=== PATIENT | male | born 1960 | race Caucasian/White ===

== ENCOUNTER → 2020-02-03 09:43 | Outpatient (BNVA) | payer BC, SELFPAY | PROVIDERS: PCP Internal Medicine; Referring Provider Internal Medicine; Visit Provider Hospitalist | DX: J45.909 Unspecified asthma, uncomplicated (principal); G47.33 Obstructive sleep apnea (adult) (pediatric); Z23 Encounter for immunization | CPT/HCPCS: 90686 ==

== ENCOUNTER 2021-09-11 09:06 | Outpatient (REF) | payer BC, SELFPAY ==
--- NOTE | ~2021-09-11 | XR_ITS ---
EXAMINATION: XR CHEST CLINICAL INFORMATION: COVID 19. COMPARISON: None TECHNIQUE: 2 views of the chest were obtained. FINDINGS: No significant abnormality is noted involving the heart, lungs, mediastinum, bony thorax or soft tissues. XR/XR chest 2V IMPRESSION: No acute cardiopulmonary process.
== END 2021-09-11 09:07 | disposition home or self-care (01) ==
LOC: HO.XRAY 09:06
PROVIDERS: PCP Internal Medicine; Visit Provider Hospitalist
DX: U07.1 COVID-19 (principal)
CPT/HCPCS: 71046

== ENCOUNTER → 2022-08-22 14:20 | Outpatient (BNVA) | payer BC, SELFPAY | PROVIDERS: PCP Internal Medicine; Visit Provider Hospitalist | DX: J45.909 Unspecified asthma, uncomplicated (principal) ==

== ENCOUNTER → 2022-09-25 09:34 | Outpatient (REF) | payer BC, SELFPAY | LOC: HO.SL 09:34 | PROVIDERS: PCP Internal Medicine; Visit Provider Hospitalist | DX: G47.33 Obstructive sleep apnea (adult) (pediatric) (principal) | CPT/HCPCS: 95806 ==

== ENCOUNTER 2023-08-01 09:32 | Outpatient (AMB) | payer BC, SELFPAY ==
[2023-08-01 09:43] VITALS: PULSE 72; O2SAT 97; BMI 34.3
--- NOTE | 2023-08-01 09:43 | MHC.OFFVIS ---
Vital Signs 08/01/23 09:43 Height 6 ft 1 in Weight 260 lb BMI 34.3 Pulse 72 Pulse Source Pulse Oximeter Pulse Oximetry (%) 97 Oxygen Delivery Method Room Air Intake Visit Reasons: productive cough Seaming Inspector Required: No Allergies Iodine Allergy (Severe, Uncoded 08/01/23 09:44) Hives IVP Dye Allergy (Severe, Uncoded 08/01/23 09:44) Hives Seafood Allergy (Severe, Uncoded 08/01/23 09:44) Hives HPI Comments Details: The patient is a 62-year-old gentleman known obstructive sleep apnea on chronic rhinitis. Overall he has been doing good on the CPAP. The CPAP therapy has been affecting beneficial. He does use it for more than 4 hours. The only issue is that he has been having significant dry mouth. He does use a fullface mask. It is likely he is opening his mouth. He understands that to dry gingiva can actually be detrimental to his dental health. Therefore, he would have to switch over to a fullface mask or continue using the nasal mask with a chinstrap. He is open to trying the fullface mask at this time since his nasal congestion is also pretty significant. He is using the nasal rinse. Also provided with additional nasal steroid sprays to try to improve the inflammation. 08/22/2022 the patient is here for a pulmonary follow-up visit. He is not using CPAP. It was bothering his mouth and could not tolerate the therapy well. Therefore he stopped it. He has been sleeping without it. Seems to be doing better although he still has episodes of snoring and apnea per his . The patient does have significant sleep apnea based on previous studies. He has had significant weight loss and he is hopeful that his degree of sleep apnea has improved. He also has a positional bed which will try to use more in order to improve his obstructive airway. Therefore, will request a repeat study to see the patient still required CPAP. If he does require CPAP then we have to find a way for him to be able to tolerated effectively in order to decrease his cardiovascular risk factors. He has nasal congestion is still present. He has been trying the nasal sprays with only partial improvement of the symptoms. 08/01/2023 the patient is here for a pulmonary follow-up visit. He has been having multiple complaints. In part he has been having worsening cough nasal congestion difficulty use CPAP. The patient has been waking up with a very dry mouth and also with coughing episodes. He is tried fluticasone nasal spray and also the nasal rinse but it really has not helped him. He has not taking any allergy medicine at this time. He does have significant nasal passages congestion and also postnasal drip. His lungs sound okay. In addition to this the patient did follow-up with his new primary care doctor. He has a history of a bicuspid aortic valve in addition to any order aneurysms. Therefore she did undergo a CTA demonstrating and the ascending aorta measuring 4.9 cm in size. The patient will be following up with his primary care doctor but in the meantime I will go ahead and put a referral in to Cardiology although he may need to see Cardiothoracic surgery soon. He is also having issues with his left knee to a traumatic injury when he was child. At this point we need to address all his cardiac issues before considering any orthopedic intervention. From a pulmonary standpoint the patient is doing okay. Will go ahead and treating for the upper airway cough syndrome and hopefully can to tolerate the CPAP again. [facility] Medical History (Updated 08/03/23 @ 22:16 by Davis Friedman MD) Aortic aneurysm COVID-19 Asthma Chronic allergic rhinitis SHAUNA (obstructive sleep apnea) Family History (Updated 02/03/20 @ 21:45 by Davis Friedman MD) Other SHAUNA (obstructive sleep apnea) Social History (Updated 08/31/21 @ 14:59 by Opal Mckeon Rene) Patient Tobacco Use Status: Never used Tobacco Review of Systems Const Denies night sweats and Reports snoring ENT Denies change in voice, Reports dry mouth, Denies lip swelling, Denies mouth pain, Reports nasal congestion, Reports nasal discharge and Denies tongue swelling Card Denies chest pain and Reports dyspnea on exertion Resp Denies chest congestion, Reports cough, Denies hemoptysis, Reports dyspnea on exertion and Reports snoring GI Denies abdominal pain Musc Denies no additional complaints Neuro Denies Neuro-related abnormal movements Psych Denies no additional complaints Prateek/Lymph Denies easy bleeding and Denies lymphadenopathy Aller/Immun Denies lip swelling and Denies tongue swelling Physical Exam Vital Signs: Last Vital Signs Pulse 72 08/01/23 09:43 Pulse Ox 97 08/01/23 09:43 Oxygen Delivery Method Room Air 08/01/23 09:43 BMI result Body Mass Index 34.3 Const General: alert HEENT General nose exam: Abnormal external nose present and Nasal discharge present Eyes Pupils: Equal, round and reactive pupils present Neck Neck: Yes normal visual inspection, Yes full ROM and Yes no lymphadenopathy Chest Chest palpation & inspection: normal inspection of the chest Resp Effort & Inspection: normal respiratory effort Auscultation: diminished lung sounds Cardio Rate: regular rate Rhythm: regular rhythm Heart sounds: S1 normal heart sound present and S2 normal heart sound present GI Palpation (GI): Soft to palpation and nontender Auscultation: normal bowel sounds General: Yes no CVA tenderness Back/Spine/Pelvis Back: no CVA tenderness Skin General skin exam: rashes and/or lesions noted Neuro Cranial nerves: Yes Equal, round and reactive pupils present Assessment & Plan Assessment & Plan (1) SHAUNA (obstructive sleep apnea): Code(s): G47.33 - Obstructive sleep apnea (adult) (pediatric) Category: Medical Plan: Failed APAP, Needs BIPAP. Will request through his [employer], [employer] (2) Chronic allergic rhinitis: Code(s): J30.9 - Allergic rhinitis, unspecified Category: Medical Plan: Add singulair Add Aztelin (3) Asthma: Code(s): J45.909 - Unspecified asthma, uncomplicated Category: Medical Qualifiers: Asthma severity: moderate Asthma persistence: persistent Asthma complication type: uncomplicated Qualified Code(s): J45.40 - Moderate persistent asthma, uncomplicated (4) Aortic aneurysm: Code(s): I71.9 - Aortic aneurysm of unspecified site, without rupture Category: Medical Qualifiers: Aortic location: thoracic aorta Thoracic aorta location: ascending aorta Presence of rupture: without rupture Qualified Code(s): I71.21 - Aneurysm of the ascending aorta, without rupture (5) Sinusitis: Code(s): J32.9 - Chronic sinusitis, unspecified Category: Medical Qualifiers: Sinusitis location: unspecified location Chronicity: subacute Qualified Code(s): J01.90 - Acute sinusitis, unspecified Plan continue nasal sprays nasal rinsing medrol pk doxycycline astelin nasal spray Cardiology referal F/U 8-12 months or sooner if no better Orders: Referrals Cardiology Referral I71.9 - Aortic aneurysm of unspecified site, without rupture Medications: New methylprednisolone (Medrol (Jameson)) PO PER PKG DIR 21 ea 0RF 6 days cetirizine (Zyrtec) 10 mg PO DAILY 30 tabs 8RF 30 days doxycycline hyclate 100 mg PO BID 20 caps 0RF 10 days Coding Level of Care Code Est Pt Level 4 (36928) Diagnoses SHAUNA (obstructive sleep apnea) G47.33 Chronic allergic rhinitis J30.9 Moderate persistent asthma without complication J45.40 Asthma severity: moderate Asthma persistence: persistent Asthma complication type: uncomplicated Aneurysm of ascending aorta without rupture I71.21 Aortic location: thoracic aorta Thoracic aorta location: ascending aorta Presence of rupture: without rupture Subacute sinusitis, unspecified location J01.90 Sinusitis location: unspecified location Chronicity: subacute Time Spent (min) 18
== END 2023-08-01 10:15 | disposition home or self-care (01) ==
PROVIDERS: PCP Internal Medicine; Visit Provider Hospitalist
DX: G47.33 Obstructive sleep apnea (adult) (pediatric) (principal); J30.9 Allergic rhinitis, unspecified; J45.40 Moderate persistent asthma, uncomplicated; I71.21 Aneurysm of the ascending aorta, without rupture; J01.90 Acute sinusitis, unspecified
CPT/HCPCS: 99214

== ENCOUNTER → 2023-08-01 09:32 | Outpatient (BNVA) | payer BC, SELFPAY | PROVIDERS: PCP Internal Medicine; Visit Provider Hospitalist ==

== ENCOUNTER 2024-02-03 09:32 | Outpatient (AMB) | payer MEDICARE, BC, SELFPAY ==
[2024-02-03 09:36] VITALS: BP 142/70; PULSE 79; O2SAT 97; BMI 35.2
--- NOTE | 2024-02-03 09:36 | MHC.OFFVIS ---
Vital Signs 02/03/24 09:36 Height 6 ft 1 in Weight 266 lb 12.149 oz BMI 35.2 BP 142/70 H Blood Pressure Location Lt brachial Position Sitting Pulse 79 Pulse Source Pulse Oximeter Pulse Oximetry (%) 97 Oxygen Delivery Method Room Air Intake Visit Reasons: Cough Oven Drier Tender Required: No Oxide Furnace Tender: Oxide Furnace Tender offered & declined Accompanied by: Self / Same As Patient Allergies Iodine Allergy (Severe, Uncoded 02/03/24 09:42) Hives IVP Dye Allergy (Severe, Uncoded 02/03/24 09:42) Hives Seafood Allergy (Severe, Uncoded 02/03/24 09:42) Hives Medication List - Last Reconciled 02/03/24 by Chloe Roche LPN acetaminophen ER (Tylenol Arthritis Pain) 650 mg PO Q12H allopurinol 300 mg PO DAILY amlodipine 5 mg PO DAILY atorvastatin 10 mg PO DAILY azelastine 2 sprays intranasal BID cetirizine (Zyrtec) 10 mg PO DAILY 30 days cholecalciferol (vitamin D3) 25 mcg PO DAILY fluticasone propionate 50 mcg/actuation (Flonase Allergy Relief) 2 sprays intranasal DAILY 90 days ibuprofen 800 mg PO BID multivitamin 1 tab PO DAILY HPI Comments Details: The patient is a 63-year-old gentleman known obstructive sleep apnea on chronic rhinitis. Overall he has been doing good on the CPAP. The CPAP therapy has been affecting beneficial. He does use it for more than 4 hours. The only issue is that he has been having significant dry mouth. He does use a fullface mask. It is likely he is opening his mouth. He understands that to dry gingiva can actually be detrimental to his dental health. Therefore, he would have to switch over to a fullface mask or continue using the nasal mask with a chinstrap. He is open to trying the fullface mask at this time since his nasal congestion is also pretty significant. He is using the nasal rinse. Also provided with additional nasal steroid sprays to try to improve the inflammation. 08/22/2022 the patient is here for a pulmonary follow-up visit. He is not using CPAP. It was bothering his mouth and could not tolerate the therapy well. Therefore he stopped it. He has been sleeping without it. Seems to be doing better although he still has episodes of snoring and apnea per his . The patient does have significant sleep apnea based on previous studies. He has had significant weight loss and he is hopeful that his degree of sleep apnea has improved. He also has a positional bed which will try to use more in order to improve his obstructive airway. Therefore, will request a repeat study to see the patient still required CPAP. If he does require CPAP then we have to find a way for him to be able to tolerated effectively in order to decrease his cardiovascular risk factors. He has nasal congestion is still present. He has been trying the nasal sprays with only partial improvement of the symptoms. 08/01/2023 the patient is here for a pulmonary follow-up visit. He has been having multiple complaints. In part he has been having worsening cough nasal congestion difficulty use CPAP. The patient has been waking up with a very dry mouth and also with coughing episodes. He is tried fluticasone nasal spray and also the nasal rinse but it really has not helped him. He has not taking any allergy medicine at this time. He does have significant nasal passages congestion and also postnasal drip. His lungs sound okay. In addition to this the patient did follow-up with his new primary care doctor. He has a history of a bicuspid aortic valve in addition to any order aneurysms. Therefore she did undergo a CTA demonstrating and the ascending aorta measuring 4.9 cm in size. The patient will be following up with his primary care doctor but in the meantime I will go ahead and put a referral in to Cardiology although he may need to see Cardiothoracic surgery soon. He is also having issues with his left knee to a traumatic injury when he was child. At this point we need to address all his cardiac issues before considering any orthopedic intervention. From a pulmonary standpoint the patient is doing okay. Will go ahead and treating for the upper airway cough syndrome and hopefully can to tolerate the CPAP again. 02/03/2024 the patient is here for a pulmonary follow-up visit. He has been having worsening dyspnea on exertion. Even with minimal activity. He has been being followed closely for the cardiac issues including the valvular disease in the aortic aneurysm. He does not use any inhalers at this time. We did go for a walking oximetry the patient did desaturate down to 92%. As part of the workup he did have a CT scan of the chest at [facility] which I personally reviewed. Lung parenchyma looks completely normal. Does have the issue with the aneurysmal dilation of the aorta which measuring 4.9 cm similar to previous and also significant calcifications of the coronary arteries. He needs to see Cardiology likely needs a stress test sooner rather than later. For now he is going to call to see if he can be added to the cancellation list and get an earlier appointment otherwise follow-up with cardiology next month. I am going to hold off on inhaler therapies set up believe that will help him. Although I do believe that he is volume overloaded and will given 3 days of Lasix in order for him to diurese. We did talk about the importance of low-sodium diet. The patient is the meal prepared in the family. Typically he has premade frozen meals. We did talk about making sure he [employer] low-sodium meals. Also minimizing another salt loaded foods such as chips. He is going to work on that for now hopefully that will improve his respiratory capacity and as his volume status improves. Also going to request an overnight oximetry to assess his oxygen needs at nighttime. Patient will follow-up in 3 months. [facility] Medical History (Updated 02/03/24 @ 20:07 by Davis Friedman MD) Aortic aneurysm COVID-19 Asthma Chronic allergic rhinitis SHAUNA (obstructive sleep apnea) Family History (Updated 02/03/20 @ 21:45 by Davis Friedman MD) Other SHAUNA (obstructive sleep apnea) Social History (Updated 02/03/24 @ 09:43 by Chloe Roche LPN) Patient Tobacco Use Status: Never used Tobacco Review of Systems Const Denies night sweats and Reports snoring ENT Denies change in voice, Reports dry mouth, Denies lip swelling, Denies mouth pain, Reports nasal congestion, Reports nasal discharge and Denies tongue swelling Card Denies chest pain and Reports dyspnea on exertion Resp Denies chest congestion, Reports cough, Denies hemoptysis, Reports dyspnea on exertion and Reports snoring GI Denies abdominal pain Musc Denies no additional complaints Neuro Denies Neuro-related abnormal movements Psych Denies no additional complaints Prateek/Lymph Denies easy bleeding and Denies lymphadenopathy Aller/Immun Denies lip swelling and Denies tongue swelling Physical Exam Vital Signs: Last Vital Signs Pulse 79 02/03/24 09:36 BP 142/70 H 02/03/24 09:36 Pulse Ox 97 02/03/24 09:36 Oxygen Delivery Method Room Air 02/03/24 09:36 BMI result Body Mass Index 35.2 Const General: alert HEENT General nose exam: Abnormal external nose present and Nasal discharge present Eyes Pupils: Equal, round and reactive pupils present Neck Neck: Yes normal visual inspection, Yes full ROM and Yes no lymphadenopathy Chest Chest palpation & inspection: normal inspection of the chest Resp Effort & Inspection: normal respiratory effort Auscultation: diminished lung sounds Cardio Rate: regular rate Rhythm: regular rhythm Heart sounds: S1 normal heart sound present, S2 normal heart sound present and Murmur heart sound present GI Palpation (GI): Soft to palpation and nontender Auscultation: normal bowel sounds General: Yes no CVA tenderness Back/Spine/Pelvis Back: no CVA tenderness Skin General skin exam: rashes and/or lesions noted Neuro Cranial nerves: Yes Equal, round and reactive pupils present Assessment & Plan Assessment & Plan (1) SHAUNA (obstructive sleep apnea): Code(s): G47.33 - Obstructive sleep apnea (adult) (pediatric) Category: Medical Plan: Failed APAP, Needs BIPAP. Will request through his [employer], [employer] (2) Chronic allergic rhinitis: Code(s): J30.9 - Allergic rhinitis, unspecified Category: Medical Plan: Add singulair Add Aztelin (3) Asthma: Code(s): J45.909 - Unspecified asthma, uncomplicated Category: Medical Qualifiers: Asthma complication type: uncomplicated Asthma persistence: persistent Asthma severity: moderate Qualified Code(s): J45.40 - Moderate persistent asthma, uncomplicated (4) Aortic aneurysm: Code(s): I71.9 - Aortic aneurysm of unspecified site, without rupture Category: Medical Qualifiers: Aortic location: thoracic aorta Presence of rupture: without rupture Thoracic aorta location: ascending aorta Qualified Code(s): I71.21 - Aneurysm of the ascending aorta, without rupture (5) CHF (congestive heart failure): Code(s): I50.9 - Heart failure, unspecified Category: Medical Qualifiers: Heart failure type: other Qualified Code(s): I50.9 - Heart failure, unspecified Plan lasix x 3 days low sodium diet continue nasal sprays nasal rinsing astelin nasal spray Cardiology referal overnight oximetry on RA F/U 4-6 months or sooner if no better Orders: Orders Overnight Pulse Oximetry Today I50.9 - Heart failure, unspecified Medications: New furosemide (Lasix) 20 mg PO DAILY 7 tabs 0RF 7 days Coding Level of Care Code Est Pt Level 4 (11576) Diagnoses SHAUNA (obstructive sleep apnea) G47.33 Chronic allergic rhinitis J30.9 Moderate persistent asthma without complication J45.40 Asthma complication type: uncomplicated Asthma persistence: persistent Asthma severity: moderate Aneurysm of ascending aorta without rupture I71.21 Aortic location: thoracic aorta Presence of rupture: without rupture Thoracic aorta location: ascending aorta Other congestive heart failure I50.9 Heart failure type: other Time Spent (min) 16
== END 2024-02-03 10:13 | disposition home or self-care (01) ==
PROVIDERS: PCP Internal Medicine; Visit Provider Hospitalist
DX: G47.33 Obstructive sleep apnea (adult) (pediatric) (principal); J30.9 Allergic rhinitis, unspecified; J45.40 Moderate persistent asthma, uncomplicated; I71.21 Aneurysm of the ascending aorta, without rupture; I50.9 Heart failure, unspecified
CPT/HCPCS: 99214

== ENCOUNTER → 2024-02-03 09:32 | Outpatient (BNVA) | payer MEDICARE, BC, SELFPAY | PROVIDERS: PCP Internal Medicine; Visit Provider Hospitalist | DX: J45.40 Moderate persistent asthma, uncomplicated (principal); J30.9 Allergic rhinitis, unspecified; G47.33 Obstructive sleep apnea (adult) (pediatric); I71.21 Aneurysm of the ascending aorta, without rupture; I50.9 Heart failure, unspecified; Z99.89 Dependence on other enabling machines and devices | CPT/HCPCS: 99212 ==

== ENCOUNTER 2024-05-31 15:07 | Outpatient (AMB) | payer MEDICARE, BC, SELFPAY ==
[2024-05-31 15:08] VITALS: BP 122/74; PULSE 78; O2SAT 97; BMI 36.2
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
== END 2024-05-31 15:37 | disposition home or self-care (01) ==
PROVIDERS: PCP Internal Medicine; Visit Provider Hospitalist
DX: G47.33 Obstructive sleep apnea (adult) (pediatric) (principal); J30.9 Allergic rhinitis, unspecified; J45.40 Moderate persistent asthma, uncomplicated; I71.21 Aneurysm of the ascending aorta, without rupture; I50.9 Heart failure, unspecified
CPT/HCPCS: 99214

== ENCOUNTER → 2024-05-31 15:07 | Outpatient (BNVA) | payer MEDICARE, BC, SELFPAY | PROVIDERS: PCP Internal Medicine; Visit Provider Hospitalist | DX: G47.33 Obstructive sleep apnea (adult) (pediatric) (principal); J45.40 Moderate persistent asthma, uncomplicated; J30.9 Allergic rhinitis, unspecified; I71.21 Aneurysm of the ascending aorta, without rupture; I05.9 Rheumatic mitral valve disease, unspecified; R06.00 Dyspnea, unspecified; Z99.89 Dependence on other enabling machines and devices | CPT/HCPCS: 99212 ==

== ENCOUNTER 2024-10-25 09:41 | Outpatient (AMB) | payer MEDICARE, BC, SELFPAY ==
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
[2024-10-25 09:53] VITALS: BP 143/71; PULSE 76; O2SAT 99; BMI 34.6
== END 2024-10-25 10:29 | disposition home or self-care (01) ==
PROVIDERS: PCP Internal Medicine; Referring Provider Physician Assistant Medical; Visit Provider Nurse Practitioner Family
DX: M47.812 Spondylosis without myelopathy or radiculopathy, cervical region (principal); M54.2 Cervicalgia; M54.50 Low back pain, unspecified; G89.29 Other chronic pain; M47.817 Spondylosis without myelopathy or radiculopathy, lumbosacral region; M25.562 Pain in left knee
CPT/HCPCS: 99204

== ENCOUNTER 2024-10-25 09:41 | Outpatient (REF) | payer MEDICARE, BC, SELFPAY ==
--- NOTE | ~2024-10-25 | XR_ITS ---
EXAMINATION: XR CERVICAL SPINE CLINICAL INFORMATION: M47.812 - Spondylosis without myelopathy or radiculopathy, cervical region COMPARISON: None available. TECHNIQUE: AP oblique and lateral views swimmer's projection. Atlantoaxial view. FINDINGS: Craniocervical junction is intact. Marginal osteophyte formation and/syndesmophyte formation C5-6 and C6-7 levels. Grade 1 retrolisthesis C3-4. Bilateral neuroforamina narrowing at C3-4 C5-6 levels mostly on the right side. XR/XR cervical spine 4V IMPRESSION: Multilevel cervical thoracic spondylosis pronounced at C5-6 and C6-7 with a grade 1 retrolisthesis C3-4 on a degenerative basis. Electronically signed by: Janes Deras MD 10/25/2024 11:25 AM EDT
--- NOTE | ~2024-10-25 | XR_ITS ---
EXAMINATION: X-ray lumbar spine CLINICAL INFORMATION: Low back pain. TECHNIQUE: AP oblique and lateral views.. COMPARISON: None FINDINGS: Multilevel marginal osteophyte formation and syndesmophyte formation throughout the lower thoracic and upper lumbar spine. Endplate sclerosis at multiple levels of the lower thoracic and lumbar spine. Small marginal osteophyte formation in the lower lumbar spine. Facet joint hypertrophy at L5-S1. No acute cortical disruption or gross malalignment. Vascular calcifications, aorta. Degenerative changes in the coxofemoral joints, pronounced on the right hip no fully included in the [id number]. Cluster of calcifications overlapping the lower pole left kidney the largest measures 5.9 mm XR/XR lumbar spine 4V min IMPRESSION: Multilevel thoracolumbar spondylosis without acute fracture or trauma-related listhesis. Probable nephrolithiasis, left kidney. Osteoarthrosis, both hips. Electronically signed by: Janes Deras MD 10/25/2024 11:24 AM EDT
== END 2024-10-25 09:42 | disposition home or self-care (01) ==
LOC: HO.XRAY 09:41
PROVIDERS: PCP Internal Medicine; Referring Provider Physician Assistant Medical; Visit Provider Nurse Practitioner Family
DX: M47.812 Spondylosis without myelopathy or radiculopathy, cervical region (principal); M54.2 Cervicalgia; M47.817 Spondylosis without myelopathy or radiculopathy, lumbosacral region; G89.21 Chronic pain due to trauma; M54.50 Low back pain, unspecified; M25.562 Pain in left knee; Z79.899 Other long term (current) drug therapy; I71.9 Aortic aneurysm of unspecified site, without rupture
CPT/HCPCS: 72050; 72110; 99202

== ENCOUNTER → 2024-10-25 10:44 | Outpatient (BNV) | payer MEDICARE, BC, SELFPAY | PROVIDERS: PCP Internal Medicine; Referring Provider Physician Assistant Medical; Visit Provider Radiology Diagnostic Radiology | DX: M47.812 Spondylosis without myelopathy or radiculopathy, cervical region (principal); M47.815 Spondylosis without myelopathy or radiculopathy, thoracolumbar region | CPT/HCPCS: 72050; 72110 ==

== ENCOUNTER 2025-03-11 14:29 | Outpatient (AMB) | payer MEDICARE, BC, SELFPAY ==
--- OUTSIDE RECORDS SUMMARY | 2024-11-05 05:30 | XMS_ITS | Continuity of Care Document ---
Author Organization [facility] Address [address] [place] [address] Dr [address] [place] [phone] Phone Care Team Providers Care Practical Nurse Name Role Phone Mirza JEAN, TESSIE, Yosvany MARTINEZ Unavailable U navailable Procedures Procedure Date Office/Oupt E&M New Pt 45 Mins- CT & [place] Advance Directives Directive Yes / No Effective Date File Name Other Directive No 11/05/2024 N/A WARNING:The information contained in this section is historical and is provided for information only and does not constitute a legal document or any assurance that the information is still accurate. Please verify the information with the gallegos of the legal document before using it for clinical purposes. Encounters Encounter Description Practice Location Reason(s) For Visit Diagnoses Date Provider Encounter Disposition Office/Oupt E&M New Pt 45 Mins- CT & [place] [facility], [address] [place] [address] Dr Gallegos [address]Suite Edgardo [place], [id number], [place] tel:[phone] R - [facility] Chronic venous hypertension (idiopathic) with other complications of bilateral lower extremityRest less legs syndromeEssen tial (primary) hypertensionL ymphedema, not elsewhere classifiedDis order of pigmentation, unspecifiedHe reditary lymphedemaCra mp and spasmLocalize d edema Mirza JEAN, MICHELLE KURTZ. [address] [facility], [address], [place], [place], [id number] , [place]. tel:[phone] [facility], [address] [place] [address] Dr Gallegos [address] Edgardo Collazo MD, [id number], tel:[phone] [facility] - [place] [facility] [place] Chronic venous hypertension (idiopathic) with other complications of bilateral lower extremity Mirza JEAN, RVT, MICHELLE Bar. [address] [facility], [address], [place], [place], [id number] , [place]. tel:[phone] Family History Family Member Type Diagnosis Age At Onset No Information Payers Payer name Insurance type Identifiers Authorization(s) Com ments Medicare EMMA CASSIDY er ID: [id number] Name: Coverage Status Eligibility Check on: [id number] nship to Subscriber: selfPayer Address: [address], [place], [place], [id number], [place] Phone: [phone] [facility] ID: [id number] Name: Coverage Status Eligibility Check on: [id number] nship to Subscriber: selfPayer Address: [address], [place], [address], [place]ayer Phone: [phone] Social History Type Description Quantity Date Captured Comments Alcohol Use Details Unknown Caffeine Use Details Unknown Tobacco Use Status Current non-smoker Smoking Status Never Smoker Non-Smoking Tobacco Use Details : No Details Available : No Details Available Sex Male Current Gender Male (finding) Vital Signs Date / Time: Height Weight BMI Pulse Rate Blood Pressure Temperature Respiratory Rate Body Surface Area Head Circumference Head Circ. Percentile Wt./Darren. Percentile BMI percentile Pulse Ox Inhaled Ox 119.290 kg (263.00 lbs) 34.7 1 kg/m eter (2) 134/76 mm[Hg] Chief Complaint And Reason For Visit No Information Plan Of Treatment Date Type Action Status Goal Diet education completed Referral Ordered: Weight management: Referral to physician timeframe: 3 Months (related to Body mass index (BMI) 34.0-34.9, adult) ordered History Of Present Illness Encounter Date Complaint History Of Prese nt Illness No Information Functional Status Date Description Comments No Information Instructions Date Instruction Additional Infor nilton Pre and post instruc tions reviewed and provided Related to Chronic venous hypertension (idiopathic) with other complications of bilateral lower extremity Patient education booklet given Related to Chronic venous hypertension (idiopathic) with other complications of bilateral lower extremity Diet education Related to Body mass index (BMI) 34.0-34.9, adult Lifestyle education Related to B freddie mass index (BMI) 34.0-34.9, adult Giving Encouragement to exercise Related to Body mass index (BMI) 34.0-34.9, adult Assessments Type Assessment Date No Information
[2025-03-11 14:40] VITALS: BP 116/72; PULSE 69; O2SAT 96
--- NOTE | 2025-03-11 14:40 | MHC.OFFVIS ---
Vital Signs 03/11/25 14:40 Height 6 ft 1 in BMI Reason not done Patient refused/unable BP 116/72 Blood Pressure Location Lt brachial Position Sitting Pulse 69 Pulse Source Pulse Oximeter Pulse Oximetry (%) 96 Oxygen Delivery Method Room Air Intake Visit Reasons: cough Soaker Helper Required: No Accounts Payable Coordinator: Accounts Payable Coordinator offered & declined Accompanied by: Spouse Allergies Iodine Allergy (Severe, Uncoded 05/31/24 15:13) Hives IVP Dye Allergy (Severe, Uncoded 05/31/24 15:13) Hives Seafood Allergy (Severe, Uncoded 05/31/24 15:13) Hives HPI Comments Details: The patient is a 64 year-old gentleman known obstructive sleep apnea on chronic rhinitis. Overall he has been doing good on the CPAP. The CPAP therapy has been affecting beneficial. He does use it for more than 4 hours. The only issue is that he has been having significant dry mouth. He does use a fullface mask. It is likely he is opening his mouth. He understands that to dry gingiva can actually be detrimental to his dental health. Therefore, he would have to switch over to a fullface mask or continue using the nasal mask with a chinstrap. He is open to trying the fullface mask at this time since his nasal congestion is also pretty significant. He is using the nasal rinse. Also provided with additional nasal steroid sprays to try to improve the inflammation. 08/22/2022 the patient is here for a pulmonary follow-up visit. He is not using CPAP. It was bothering his mouth and could not tolerate the therapy well. Therefore he stopped it. He has been sleeping without it. Seems to be doing better although he still has episodes of snoring and apnea per his . The patient does have significant sleep apnea based on previous studies. He has had significant weight loss and he is hopeful that his degree of sleep apnea has improved. He also has a positional bed which will try to use more in order to improve his obstructive airway. Therefore, will request a repeat study to see the patient still required CPAP. If he does require CPAP then we have to find a way for him to be able to tolerated effectively in order to decrease his cardiovascular risk factors. He has nasal congestion is still present. He has been trying the nasal sprays with only partial improvement of the symptoms. 08/01/2023 the patient is here for a pulmonary follow-up visit. He has been having multiple complaints. In part he has been having worsening cough nasal congestion difficulty use CPAP. The patient has been waking up with a very dry mouth and also with coughing episodes. He is tried fluticasone nasal spray and also the nasal rinse but it really has not helped him. He has not taking any allergy medicine at this time. He does have significant nasal passages congestion and also postnasal drip. His lungs sound okay. In addition to this the patient did follow-up with his new primary care doctor. He has a history of a bicuspid aortic valve in addition to any order aneurysms. Therefore she did undergo a CTA demonstrating and the ascending aorta measuring 4.9 cm in size. The patient will be following up with his primary care doctor but in the meantime I will go ahead and put a referral in to Cardiology although he may need to see Cardiothoracic surgery soon. He is also having issues with his left knee to a traumatic injury when he was child. At this point we need to address all his cardiac issues before considering any orthopedic intervention. From a pulmonary standpoint the patient is doing okay. Will go ahead and treating for the upper airway cough syndrome and hopefully can to tolerate the CPAP again. 02/03/2024 the patient is here for a pulmonary follow-up visit. He has been having worsening dyspnea on exertion. Even with minimal activity. He has been being followed closely for the cardiac issues including the valvular disease in the aortic aneurysm. He does not use any inhalers at this time. We did go for a walking oximetry the patient did desaturate down to 92%. As part of the workup he did have a CT scan of the chest at [facility] which I personally reviewed. Lung parenchyma looks completely normal. Does have the issue with the aneurysmal dilation of the aorta which measuring 4.9 cm similar to previous and also significant calcifications of the coronary arteries. He needs to see Cardiology likely needs a stress test sooner rather than later. For now he is going to call to see if he can be added to the cancellation list and get an earlier appointment otherwise follow-up with cardiology next month. I am going to hold off on inhaler therapies set up believe that will help him. Although I do believe that he is volume overloaded and will given 3 days of Lasix in order for him to diurese. We did talk about the importance of low-sodium diet. The patient is the meal prepared in the family. Typically he has premade frozen meals. We did talk about making sure he Dupixent low-sodium meals. Also minimizing another salt loaded foods such as chips. He is going to work on that for now hopefully that will improve his respiratory capacity and as his volume status improves. Also going to request an overnight oximetry to assess his oxygen needs at nighttime. Patient will follow-up in 3 months. 05/31/2024 the patient is here for a pulmonary follow-up visit. Overall the patient has been doing well. He did follow-up with Cardiology. His aortic aneurysm stable. Though continue to monitor that closely. Does have dyspnea on exertion. His primary care doctor did want him to get a stress test. Does have a hard time because of his knees and would have a hard time on the treadmill. Therefore he can do either a bike or a pharmacological nuclear stress test. He will talk to his pole tester at [facility]. He does want to become more active but he is concerned now he wants to make sure that is hard stable before stressing himself aerobically. In the meantime he has not been using the CPAP. The dry mouth. He has been sleeping elevated and he has not been snoring. Now his primary care doctor is trying to get him on Zetbound for weight loss because of the underlying sleep apnea in this will help his other conditions. I do believe that is a good option along with dietary indiscretions and lifestyle changes. While he is not using his CPAP the patient does have aides her congestive heart failure therefore will go ahead and order an overnight oximetry to make sure that his oxygen saturations are stable at nighttime. 03/11/2025 the patient is here for pulmonary follow-up visit. Overall the patient is doing fair. He has significant daytime drowsiness. The patient has increased snoring as he has increased weight as well. His Selma score is elevated 02/14. The patient did have a diagnosis of sleep apnea and had been on CPAP in the past but he did not tolerate the dryness in the mouth. At this point the patient needs to have another sleep study. He has any increased cardiovascular risk factors he is developing increasing shortness of breath and worsening apnea. Therefore, will go ahead and repeat the sleep study this time with the hopes that he can tolerate CPAP. If not we can also consider other alternatives. The patient will continue his current respiratory therapy. He still has nasal congestion. Did not respond to the Flonase of the Astelin nasal spray. Will provide him with the ipratropium nasal spray that he can use as needed. Will follow-up after the sleep study. [facility] Medical History (Updated 10/25/24 @ 22:56 by LIBRADO Reece) Aortic aneurysm COVID-19 Asthma Chronic allergic rhinitis SHAUNA (obstructive sleep apnea) Family History (Updated 02/03/20 @ 21:45 by Davis Friedman MD) Other SHAUNA (obstructive sleep apnea) Social History Patient Tobacco Use Status: Never used Tobacco Review of Systems Const Reports daytime sleepiness, Reports difficulty sleeping, Reports fatigue, Denies night sweats and Reports snoring ENT Denies change in voice, Reports dry mouth, Denies lip swelling, Denies mouth pain, Reports nasal congestion, Reports nasal discharge and Denies tongue swelling Card Denies chest pain and Reports dyspnea on exertion Resp Denies chest congestion, Reports cough, Denies hemoptysis, Reports dyspnea on exertion and Reports snoring GI Denies abdominal pain Musc Denies no additional complaints Neuro Denies Neuro-related abnormal movements Psych Denies no additional complaints Endo Reports fatigue Prateek/Lymph Denies easy bleeding and Denies lymphadenopathy Aller/Immun Denies lip swelling and Denies tongue swelling Physical Exam Vital Signs: Last Vital Signs Pulse 69 03/11/25 14:40 BP 116/72 03/11/25 14:40 Pulse Ox 96 03/11/25 14:40 Oxygen Delivery Method Room Air 03/11/25 14:40 Const General: alert HEENT General nose exam: Abnormal external nose present and Nasal discharge present Eyes Pupils: Equal, round and reactive pupils present Neck Neck: Yes normal visual inspection, Yes full ROM and Yes no lymphadenopathy Chest Chest palpation & inspection: normal inspection of the chest Resp Effort & Inspection: normal respiratory effort Auscultation: diminished lung sounds Cardio Rate: regular rate Rhythm: regular rhythm Heart sounds: S1 normal heart sound present, S2 normal heart sound present and Murmur heart sound present GI Palpation (GI): Soft to palpation and nontender Auscultation: normal bowel sounds General: Yes no CVA tenderness Back/Spine/Pelvis Back: no CVA tenderness Skin General skin exam: rashes and/or lesions noted Neuro Cranial nerves: Yes Equal, round and reactive pupils present Assessment & Plan Assessment & Plan (1) SHAUNA (obstructive sleep apnea): Code(s): G47.33 - Obstructive sleep apnea (adult) (pediatric) Category: Medical Plan: Failed APAP, Needs BIPAP. Will request through his [employer] company, [employer] (2) Chronic allergic rhinitis: Code(s): J30.9 - Allergic rhinitis, unspecified Category: Medical Plan: Add singulair Add Aztelin (3) Asthma: Code(s): J45.909 - Unspecified asthma, uncomplicated Category: Medical Qualifiers: Asthma complication type: uncomplicated Asthma persistence: persistent Asthma severity: moderate Qualified Code(s): J45.40 - Moderate persistent asthma, uncomplicated (4) Aortic aneurysm: Code(s): I71.9 - Aortic aneurysm of unspecified site, without rupture Category: Medical Qualifiers: Aortic location: thoracic aorta Presence of rupture: without rupture Thoracic aorta location: ascending aorta Qualified Code(s): I71.21 - Aneurysm of the ascending aorta, without rupture (5) CHF (congestive heart failure): Code(s): I50.9 - Heart failure, unspecified Category: Medical Qualifiers: Heart failure type: other Qualified Code(s): I50.9 - Heart failure, unspecified Plan nasal rinsing ipratropium nasal spray home PSG F/U 6-8 months or sooner if no better Orders: Orders RT home sleep study 03/11/25 G47.33 - Obstructive sleep apnea (adult) (pediatric) Medications: New ipratropium bromide administer into each nostril 2 sprays intranasal TID PRN 15 mL 6RF allergy symptoms Coding Level of Care Code Est Pt Level 4 (73542) Diagnoses SHAUNA (obstructive sleep apnea) G47.33 Chronic allergic rhinitis J30.9 Moderate persistent asthma without complication J45.40 Asthma complication type: uncomplicated Asthma persistence: persistent Asthma severity: moderate Aneurysm of ascending aorta without rupture I71.21 Aortic location: thoracic aorta Presence of rupture: without rupture Thoracic aorta location: ascending aorta Other congestive heart failure I50.9 Heart failure type: other Time Spent (min) 17
--- OUTSIDE RECORDS SUMMARY | 2025-03-11 15:56 | XMS_ITS | Encounter Summary ---
Author Organization [facility] Address [address] [place] [address] Care Team Providers Care Emts Name Role Phone Zurdo, Matthew AMBROCIO Primary Care Provider [phone] Encounter Details Date Type Department Care Team (Late st Contact Info) Description 04/16/2024 Lab Requisition [facility] Lab [address] [place] [id number] Marvin Robert MD [address] [facility] [address] [place] [id number] Calculus of kidney Social History Tobacco Use Types Packs/Day Years Used Date Smoking Tobacco: Never Assessed Sex and Gender Information Value Date Recorded Sex Assigned at Not on file Legal Sex Male 4:46 PM EST Gender Identity Not on file Sexual Orientation Not on file documented as of this encounter Plan of Treatment Not on file documented as of this encounter Procedures Procedure Name Priority Date/Time Associated Diagnosis Comments STONE ANALYSIS Routine 04/16/2024 12:00 AM EST [facility] of kidney documented in this encounter Results * Stone analysis (04/16/2024 12:00 AM EST) Component(s) See below 04/20/2024 9:39 PM EST [facility] Comment: 40% Mucopolysaccharide 10% Triglyceride 50% Protein Results should be interpreted with caution due to poor library match. Stone Weight 0.0428 g 04/20/2024 9:39 PM EST [facility] Comment: This test was developed and its performance characteristics determined by [facility] in a manner consistent with CLIA requirements. This test has not been cleared or approved by the U.S. Food and Drug Administration. Test performed at [facility], [address], [place] [address] Monica Pearson MD, PhD - Truck Cleaner Calculus 04/16/2024 04/16/2024 1:2 3 PM EST Marvin Robert MD LAB BODY FLUIDS AND STOOLS KARYNA MCCAIN Final Result [facility] [address] [place] [address] documented in this encounter Visit Diagnoses Diagnosis Calculus of kidney documented in this encounter Care Teams Emts Relationship Specialty Start Date End Date Matthew Renner PA [address] [place] [address] PCP - General Primary Care 07/29/24 documented as of this encounter
--- OUTSIDE RECORDS SUMMARY | 2025-03-11 15:56 | XMS_ITS | Clinical Summary ---
Author Organization 175 [facility] Address [address] [place] [address] Phone Care Team Providers Care Pinmaker Name Role Phone Matthew Renner Primary Care Provider [phone] Allergies Active Allergy Reactions Criticality Noted Date Comments Iodine Anaphylaxis,GI intolerance High 8 Shellfish Containing Products GI intolerance 11/06/2021 Medications amLODIPine (NORVASC) 5 mg tablet Take 1 tablet (5 mg total) by mouth 1 (one) time each day. Active atorvastatin (LIPITOR) 80 mg tablet Take 1 tablet (80 mg total) by mouth at bedtime. 5 Active cholecalciferol (VITAMIN D-3) 50 mcg (2,000 unit) capsule Take 1 capsule (2,000 Units total) by mouth daily. Active tamsulosin (FLOMAX) 0.4 mg 24 hr capsule Take 1 capsule (0.4 mg total) by mouth 1 (one) time each day. 5 Active metoprolol succinate (TOPROL-XL) 50 mg 24 hr tablet Take 1 tablet (50 mg total) by mouth 1 (one) time each day. 4 Active ibuprofen (ADVIL,MOTRIN) 800 mg tablet Take 1 tablet (800 mg total) by mouth 2 (two) times a day if needed for mild pain or moderate pain. Active albuterol HFA (PROAIR HFA ; PROVENTIL HFA ; VENTOLIN HFA) 90 mcg/actuation inhaler Inhale 1-2 puffs by mouth every 6 (six) hours if needed for wheezing. Active carboxymethylce llulose (REFRESH PLUS) 0.5 % ophthalmic solution Administer 1 drop into both eyes if needed for dry eyes. Active bisacodyL (DULCOLAX) 5 mg EC tablet Take 2 tablets by mouth right before beginning bowel prep. See instructions provided by the office 2 tablet 5 Active polyethylene glycol (Golytely) 236-22.74-6.74 -5.86 gram solution Take 4L by mouth once for one dose. May substitue any PEG. Starting at 2PM the day before your procedure drink 1 8oz glasses at your own pace until you complete half of the gallon. Finish 2nd half of the gallon at 8PM. 4000 mL 5 Active mv-mn/om3/dha/e pa/fish/lut/meghan (OCUVITE ADULT 50 PLUS ORAL) Take by mouth. A ctive acetaminophen (TYLENOL 8 HOUR) 650 mg 8 hr tablet Take 1 tablet (650 mg total) by mouth every 8 (eight) hours if needed for mild pain. Do not crush, chew, or split. Active Surgical History Surgery Date Site/Laterality Comments LITHOTRIPSY COLONOSCOPY KNEE SURGERY Medical History Medical History Date Comments H/O lithotripsy 03/2024 Aortic aneurysm (CMS/HCC V24) bi cuspid valve Sleep apnea Hyperlipidemia Hypertension Aortic aneurysm (CMS/HCC V24) Aortic stenosis Prediabetes Social History Tobacco Use Types Packs/Day Years Used Date Smoking Tobacco: Never Smokeless Tobacco: Never Tobacco Cessation:Counseling Given: Not Answered Alcohol Use Standard Drinks/Week Comments Never 0 (1 standard drink = 0.6 oz pur e alcohol) Interpersonal Safety Answer Date Record ed Physical Abuse Unrecognized value 10/22/2024 Verbal Abuse Unrecognized value 10/22/2024 Sex and Gender Information Value Date Recorded Sex Assigned at Not on file Legal Sex Male 4:46 PM EST Gender Identity Not on file Sexual Orientation Not on file Last Filed Vital Signs Vital Sign Reading Time Taken Comments Blood Pressure 98/66 10/22/2024 11:10 AM EDT Pulse 75 10/22/2024 11:10 AM EDT Temperature 36.6 C (97.8 F) 10/22/2024 11:00 AM EDT Respiratory Rate 18 10/22/2024 11:10 AM EDT Oxygen Saturation 96% 10/22/2024 11:10 AM EDT Inhaled Oxygen Concentration - - Weight 120 kg (264 lb) 10/15/2024 12:00 PM EDT Height 185.4 cm (6' 1 ) 10/15/2024 12:00 PM EDT Body Mass Index 34.83 10/15/2024 12:00 PM EDT Plan of Treatment Health Maintenance Due Date Last Done Comments Diabetes: Annual GFR (Glomerular Filtration Rate) 1958 Diabetes: Annual Foot Exam 1968 Diabetes: Annual Retina Eye Exam 1968 DTaP,Tdap,and Td Vaccines (1 - Tdap) 1977 Cholesterol Screening (Lipid Panel) 02/20/2022 Hepatitis C Screening 02/20/2022 Medicare Annual Wellness Visit 02/20/2022 Social Influencers of Health Screening 02/20/2022 Diabetes: Annual Urine Albumin-Creatinine Ratio (uACR) 03/09/2022 Diabetes: Blood Sugar Control Test (HGBA1C) 03/09/2022 Depression Screening 03/24/2024 Hypertension/CHF/CAD Annual BMP Blood Test 10/15/2024 COVID-19 Vaccine ( season) 2024 12/31/2022, 01/02/2021, 05/22/2020, Additional history exists Influenza Vaccine (#1) 2024 , 11/29/2022, 12/27/2021, Additional history exists Falls Risk Assessment 10/22/2025 10/22/2024 Colorectal Cancer Screening: Colonoscopy 10/22/2029 10/22/2024 RSV Immunization Adult Patients Completed 11/29/2022 Zoster Vaccines Completed 03/07/2023, 12/31/2022 Pneumococcal Vaccine: 50+ Years Completed 01/15/2024 HIB Vaccines Aged Out No longer eligi ble based on patient's age to complete this topic HPV Vaccines Aged Out No longer eligi ble based on patient's age to complete this topic Hepatitis A Vaccines Aged Out No long er eligible based on patient's age to complete this topic Hepatitis B Vaccines Aged Out No long er eligible based on patient's age to complete this topic IPV Vaccines Aged Out No longer eligi ble based on patient's age to complete this topic MMR Vaccines Aged Out No longer eligi ble based on patient's age to complete this topic Meningococcal ACWY Vaccine Aged Out N o longer eligible based on patient's age to complete this topic Meningococcal B Vaccine Aged Out No l onger eligible based on patient's age to complete this topic RSV Immunization Patients Under 20 months Aged Out No longer eligible based on patient's age to complete this topic Varicella Vaccines Aged Out No longer eligible based on patient's age to complete this topic Procedures Procedure Name Priority Date/Time Associated Diagnosis Comments COLONOSCOPY Routine 10/22/2024 10:59 AM EDT Hx of colonic polyps from Last 3 Months or Most Recently Relevant to Health Maintenance Results * COLONOSCOPY Anesthesia - MAC; [facility] ENDOSCOPY (10/22/2024 10:59 AM EDT) Anatomical Region Laterality Modality Endoscopy 10/22/2024 10:3 2 AM EDT Impressions 10/22/2024 11:03 AM EDT - Hemorrhoids found on perianal exam. - One 6 mm polyp in the sigmoid colon, removed with a cold snare. Resected and retrieved. - The entire examined colon is normal. Biopsied. Recommendation: - Discharge patient to home. - High fiber diet. - Continue present medications. - Await pathology results. - Repeat colonoscopy for surveillance based on pathology results. Narrative 10/22/2024 11:03 AM EDT [facility] GI Patient Name: Chivo Martin Procedure Date: 10/22/2024 10:32 AM Date of : 1960 Age: 63 Gender: Male Note Status: Finalized Attending MD: Cesario Ames DO, [id number] Procedure Date No Time: 10/22/2024 Procedure: Colonoscopy Indications: High risk colon cancer surveillance: Personal history of colonic polyps, Incidental - Change in bowel habits Providers: Cesario Ames DO Referring MD: Mattehw Renner PA-C Medicines: Monitored Anesthesia Care Complications: No immediate complications. Estimated blood loss: Minimal. Estimated Blood Loss: Estimated blood loss was minimal. Procedure: Pre-Anesthesia Assessment: - - Prior to the procedure, a History and Physical was performed, and patient medications and allergies were reviewed. The patient is competent. The risks and benefits of the procedure and the sedation options and risks were discussed with the patient. All questions were answered and informed consent was obtained. Patient identification and proposed procedure were verified by the physician, the nurse, the anesthesiologist, the lieutenant colonel and the field radio technician in the pre-procedure area in the endoscopy suite. Mental Status Examination: alert and oriented. Airway Examination: normal oropharyngeal airway and neck mobility. Respiratory Examination: clear to auscultation. CV Examination: normal. Prophylactic Antibiotics: The patient does not require prophylactic antibiotics. Prior Anticoagulants: The patient has taken no anticoagulant or antiplatelet agents. ASA Grade Assessment: II - A patient with mild systemic disease. After reviewing the risks and benefits, the patient was deemed in satisfactory condition to undergo the procedure. The anesthesia plan was to use monitored anesthesia care (MAC). Immediately prior to administration of medications, the patient was re-assessed for adequacy to receive sedatives. The heart rate, respiratory rate, oxygen saturations, blood pressure, adequacy of pulmonary ventilation, and response to care were monitored throughout the procedure. The physical status of the patient was re-assessed after the procedure. After I obtained informed consent, the scope was passed under direct vision. Throughout the procedure, the patient's blood pressure, pulse, and oxygen saturations were monitored continuously. The Colonoscope was introduced through the anus and advanced to the cecum, identified by appendiceal orifice and ileocecal valve. The colonoscopy was performed without difficulty. The patient tolerated the procedure well. The quality of the bowel preparation was good. Findings: Hemorrhoids were found on perianal exam. A 6 mm polyp was found in the sigmoid colon. The polyp was sessile. The polyp was removed with a cold snare. Resection and retrieval were complete. Verification of patient identification for the specimen was done. Estimated blood loss was minimal. The colon (entire examined portion) appeared normal. Biopsies for histology were taken with a cold forceps for evaluation of microscopic colitis. Procedure Code(s): --- Professional --- 50894, Colonoscopy, flexible; with removal of tumor(s), polyp(s), or other lesion(s) by snare technique 65136, 59, Colonoscopy, flexible; with biopsy, single or multiple Diagnosis Code(s): --- Professional --- D12.5, Benign neoplasm of sigmoid colon K64.9, Unspecified hemorrhoids Z86.010, Personal history of colonic polyps CPT copyright 2020 [employer]. All rights reserved. The codes documented in this report are preliminary and upon forms examiner review may be revised to meet current compliance requirements. CESARIO Ames DO 10/22/2024 11:02:58 AM This report has been signed electronically.Cesario Ames DO Number of Addenda: 0 Note Initiated On: 10/22/2024 10:32 AM Scope Withdrawal Time: 0 hours 6 minutes 54 seconds Scope In: 10:46:30 AM Scope Out: 10:58:02 AM Endoscopy Department at [facility] - [address] [place] [phone] Procedure Note Cesario Ames DO - 10/22/2024 [facility] GI Patient Name: Chivo Martin Procedure Date: 10/22/2024 10:32 AM Date of : 1960 Age: 63 Gender: Male Note Status: Finalized Attending MD: Cesario Ames DO, [id number] Procedure Date No Time: 10/22/2024 Procedure: Colonoscopy Indications: High risk colon cancer surveillance: Personalhistory of colonic polyps, Incidental - Change in bowelhabits Providers: Cesario Ames DO Referring MD: Matthew Renner PA-C Medicines: Monitored Anesthesia Care Complications: No immediate complications. Estimated blood loss: Minimal. Estimated Blood Loss: Estimated blood loss was minimal. Procedure: Pre-Anesthesia Assessment: - - Prior to the procedure, a History and Physicalwas performed, and patient medications and allergieswere reviewed. The patient is competent. The risks and benefits of the procedure and the sedation optionsand risks were discussed with the patient. Allquestions were answered and informed consent was obtained. Patient identification and proposed procedure were verified by the physician, the nurse, the anesthesiologist, the lieutenant colonel and thetechnician in the pre-procedure area in the endoscopy suite. Mental Status Examination: alert and oriented.Airway Examination: normal oropharyngeal airway and neck mobility. Respiratory Examination: clear to auscultation. CV Examination: normal. Prophylactic Antibiotics: The patient does not requireprophylactic antibiotics. Prior Anticoagulants: The patient has taken no anticoagulant or antiplatelet agents. ASA Grade Assessment: II - A patient with mild systemic disease. After reviewing the risks and benefits,the patient was deemed in satisfactory condition to undergo the procedure. The anesthesia plan was touse monitored anesthesia care (MAC). Immediately priorto administration of medications, the patient was re-assessed for adequacy to receive sedatives. The heart rate, respiratory rate, oxygen saturations, blood pressure, adequacy of pulmonary ventilation,and response to care were monitored throughout the procedure. The physical status of the patient was re-assessed after the procedure. After I obtained informed consent, the scope was passed under direct vision. Throughout theprocedure, the patient's blood pressure, pulse, and oxygen saturations were monitored continuously. The Colonoscope was introduced through the anus and advanced to the cecum, identified by appendiceal orifice and ileocecal valve. The colonoscopy was performed without difficulty. The patient tolerated the procedure well. The quality of the bowel preparation was good. Findings: Hemorrhoids were found on perianal exam. A 6 mm polyp was found in the sigmoid colon. Thepolyp was sessile. The polyp was removed with a coldsnare. Resection and retrieval were complete. Verificationof patient identification for the specimen was done. Estimated blood loss was minimal. The colon (entire examined portion) appearednormal. Biopsies for histology were taken with a coldforceps for evaluation of microscopic colitis. Procedure Code(s): --- Professional --- 78329, Colonoscopy, flexible; with removal of tumor(s), polyp(s), or other lesion(s) by snare technique 94865, 59, Colonoscopy, flexible; with biopsy,single or multiple Diagnosis Code(s): --- Professional --- D12.5, Benign neoplasm of sigmoid colon K64.9, Unspecified hemorrhoids Z86.010, Personal history of colonic polyps CPT copyright 2020 [employer]. All rights reserved. The codes documented in this report are preliminary and upon forms examiner reviewmay be revised to meet current compliance requirements. CESARIO Ames DO 10/22/2024 11:02:58 AM This report has been signed electronically.Cesario Ames DO Number of Addenda: 0 Note Initiated On: 10/22/2024 10:32 AM Scope Withdrawal Time: 0 hours 6 minutes 54 seconds Scope In: 10:46:30 AM Scope Out: 10:58:02 AM Endoscopy Department at [facility] - [address] [place] [id number] IMPRESSION: - Hemorrhoids found on perianal exam. - One 6 mm polyp in the sigmoid colon, removed witha cold snare. Resected and retrieved. - The entire examined colon is normal. Biopsied. Recommendation: - Discharge patient to home. - High fiber diet. - Continue present medications. - Await pathology results. - Repeat colonoscopy for surveillance based on pathology results. Cesario Ames DO GI~PROCEDURE ORDERABLES Final Re sult from Last 3 Months or Most Recently Relevant to Health Maintenance Insurance MEDICARE [facility] Care Teams Pinmaker Relationship Specialty Start Date End Date Matthew Renner PA [address] [place] [address] PCP - General Primary Care 07/29/24
--- OUTSIDE RECORDS SUMMARY | 2025-03-11 15:56 | XMS_ITS | Data Portability ---
Author Organization [place] - [facility], Allergy Address [address] [address] Care Team Providers Care Design Assistant Name Role Phone ANDREW COLEMAN Primary Care Provider Assessment Encounter Date Assessment Date Assessment LastModified by Organization Details LastModified Time 06/03/2024 06/03/2024 63yo male presents for evaluation of the throat. He is asymptomatic today and denies dysphagia or globus. Exam and fiberoptic laryngoscopy are unremarkable for foreign body or obstruction. Patient would like to return for audiometric testing. He will call to schedule. [email or web address] Not available 06/03/2024 12:17:07 Plan of Treatment Reminders Order Date Submit Date Provider Last Modified By Organization Details Last Modified Time Details Appointments None record ed. Lab None record ed. Referral None record ed. Procedures None record ed. Surgeries None record ed. Imaging None record ed. Medication Orders None record ed. Patient TargetsNo targets recorded. Patient InstructionsNo instructions recorded. Reason for Referral None Reported. 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 - [facility] 5 09:53:28 Problem Notes None recorded. Procedures Surgical History Date Name Laterality Status Provider Name and Address Organization Details Recorded Time 06/03/2024 FOL_DP completed BON AMARO PA-C [address] [facility],[place] [address], [place], [address], [facility] - [facility] 06/03/2024 09:45:26 Imaging Results None recorded. Procedure Notes None recorded. Medical Equipment None Reported. Allergies Allergen ID Allergen Name Allergen Category Reaction Reaction Severity Criticality Documentation Date Start Date Code Code System Note Provider Name and Address Organization Details Recorded Time 255272 iodine medicatio n Not available Not available Not available 06/03/2024 5933 RxNorm Brandee rivera [facility] 5 09:05:36 538108 shellfish derived food,medi cation Not available Not available Not available 06/03/2024 Brandee rivera [facility] 5 09:05:59 Medications Name Sig Start Date Stop Date Status Note LastModified by Organization Details LastModified Time amoxicillin 500 mg capsule TAKE 1 CAPSULE BY MOUTH EVERY 12 HOURS 06/03 completed Not Available Not Available Not Available atorvastati n 40 mg tablet TAKE 1 TABLET BY MOUTH EVERY DAY 06/03 completed Not Available Not Available Not Available atorvastati n 80 mg tablet TAKE 1 TABLET BY MOUTH EVERY DAY active Not Available Not Available No t Available doxycycline hyclate 100 mg capsule TAKE 1 CAPSULE BY MOUTH TWICE A DAY FOR 10 DAYS 06/03 completed Not Available Not Available Not Available cetirizine 10 mg tablet TAKE 1 TABLET BY MOUTH EVERY DAY active Not Available Not Available No t Available atorvastati n 10 mg tablet TAKE 1 TABLET BY MOUTH EVERY DAY 06/03 completed Not Available Not Available Not Available ibuprofen 800 mg tablet TAKE 1 TABLET BY MOUTH EVERY 8 HOURS NEEDED FOR ARTHRITIS active Not Available Not Available No t Available metoprolol succinate ER 50 mg tablet,exte nded release 24 hr TAKE 1 TABLET BY MOUTH EVERY DAY active Not Available Not Available No t Available amlodipine 5 mg tablet TAKE 1 TABLET BY MOUTH EVERY DAY active Not Available Not Available No t Available amoxicillin 875 mg tablet TAKE 1 TABLET EVERY 12 HOURS DAILY 06/03 completed Not Available Not Available Not Available tamsulosin 0.4 mg capsule TAKE 1 CAPSULE BY MOUTH EVERY DAY 06/03 completed Not Available Not Available Not Available allopurinol 300 mg tablet TAKE 1 TABLET BY MOUTH EVERY DAY 06/03 completed Not Available Not Available Not Available furosemide 20 mg tablet TAKE 1 TABLET BY MOUTH EVERY DAY FOR 7 DAYS 06/03 completed Not Available Not Available Not Available methylpredn isolone 4 mg tablets in a dose pack TAKE 6 TABLETS ON DAY 1 DIRECTED ON PACKAGE AND DECREASE BY 1 TAB EACH DAY FOR A TOTAL OF 6 DAYS 06/03 completed Not Available Not Available Not Available Paxlovid 300 mg (150 mg x 2)-100 mg tablets in a dose pack TAKE 3 TABLETS BY MOUTH TWICE A DAY FOR 5 DAYS 06/03 completed Not Available Not Available Not Available COVID-19 At-Home Test kit REFER TO MANUFACTU RER INSTRUCTI ONS INCLUDED IN PACKAGING 06/03 completed Not Available Not Available Not Available Vitals Date Recorded Body height Body mass index (BMI) Body weight Provider Name and Address Organization Details Last Updated DateTime 06/03/2024 185.42 cm 35 kg/m2 361131.98 g Brandee Paz [place] - [facility] 06/03/2024 09:05:32 Social History None recorded. Functional Status None recorded. Mental Status None recorded. Family History Nothing Reported. Medical History Condition Response Allergies/Hayfever Y Heart Problems N Anxiety N Tonsil Infections N Emphysema N Migraines N Thyroid Problems N Glaucoma N Depression N COPD N Developmental Delay N Nasal or Sinus Problems N Anemia N Immune System Disorder N Anesthesia Complications N Heart Attack ([place]) N Other Skin Condition N Diabetes N Rhinitis N Bleeding Disorder N Food Allergy N Arthritis Y Hearing Loss N Hyperlipidemia N Cancer N Stroke N Dementia N Nasal polyps N Asthma N High Cholesterol N Sleep Disorder N GERD/Reflux N Liver Disease N Headaches Y Fibromyalgia N Hypertension Y Speech Delay N Kidney Disease N Past Encounters Encounter ID Performer Location Encounter Start Date Encounter Closed Date Diagnosis/Indication Diagnosis SNOMED-CT Code Diagnosis ICD10 Code Diagnosis IMO Codes Diagnosis Note [id number] BON AMARO PA-C [facility] [address] [place] [address] 06/03/2024 08:55:17 06/03/2024 09:53:33 Throat irritation [id number] R07.0 Health Concerns Section Related Observation LastModified by Organization Detai ls LastModified Time None Recorded Concern Status LastModified by Organization Details LastModified Time None Recorded Advance Directives Directive None Recorded Payers Insurance Date Sequence Insurance Name Policy Number Policy Almendarez Covered Member ID Almendarez Member ID Guarantor Name 06/25/2024 2 [place] 113 Kenji Wheat [id number] Kenji Fregosoerico 06/03/2024 1 [place] [employer] Kenji Wheat [id number] [facility] Jarret 06/03/2024 3 [place] Kenji Fregosoerico [id number] Kenji Fregosoerico Notes Date Note Type Note Provider Name and Address Organization Details Recorded Time 06/03/2024 text/html ROS as noted in the HPI 63yo male presents for evaluation of the throat. He suspects a piece of Popsicle stick may be stuck in the throat. He reports this occured 3 weeks ago, and throat irritation has since resolved. He denies pain, globus, or difficulty swallowing. No history of smoking. CT neck soft tissue at [facility] was normal. BRITTANY ALARCON MD [address], [address], [facility] - [facility] 06/03/2024 16:30:49
== END 2025-03-11 15:12 | disposition home or self-care (01) ==
PROVIDERS: PCP Internal Medicine; Visit Provider Hospitalist
DX: G47.33 Obstructive sleep apnea (adult) (pediatric) (principal); J30.9 Allergic rhinitis, unspecified; J45.40 Moderate persistent asthma, uncomplicated; I71.21 Aneurysm of the ascending aorta, without rupture; I50.9 Heart failure, unspecified
CPT/HCPCS: 99214

== ENCOUNTER → 2025-03-11 14:29 | Outpatient (BNVA) | payer MEDICARE, BC, SELFPAY | PROVIDERS: PCP Internal Medicine; Visit Provider Hospitalist | DX: G47.33 Obstructive sleep apnea (adult) (pediatric) (principal); J31.0 Chronic rhinitis; J45.40 Moderate persistent asthma, uncomplicated; I71.21 Aneurysm of the ascending aorta, without rupture; I11.0 Hypertensive heart disease with heart failure; I50.9 Heart failure, unspecified | CPT/HCPCS: 99212 ==